=== PATIENT | female | born 1985 | race Caucasian/White ===

== ENCOUNTER 2020-03-06 07:00 | Inpatient (IN) | payer BC ==
[2020-03-06 08:59] VITALS: BMI 35.6
[2020-03-06 09:08] LABS: INR 0.91 (0.83-1.09); PROTHROMBIN TIME (PATIENT) 10.7 SEC (9.7-13.0)
[2020-03-06] MEDS ORDERED: OXYTOCIN 30 UNITS in 0.9% NS 30 UNIT/500 ML INFUS.BAG IVPB SCH (09:15)
[2020-03-06] MEDS: AMPICILLIN - 1 GM in SODIUM CHLORIDE 100 ML IVPB SCH ×5 (09:15→21:05)
[2020-03-06] MEDS: ELECTROLYTE-148 SOLN 1,000 ML IV SCH ×2 (09:15→17:29)
[2020-03-06] MEDS ORDERED: AMPICILLIN - 2 GM in SODIUM CHLORIDE 100 ML IVPB ONE (09:15)
[2020-03-06] MEDS ORDERED: AMPICILLIN SODIUM 2 GM VIAL ONE (09:16)
[2020-03-06 09:19] LABS: BLOOD UREA NITROGEN 8.8 mg/dL (7-18); CALCIUM 8.6 mg/dL (8.5-10.1); CREATININE 0.6 mg/dL (0.55-1.3); POTASSIUM 3.7 mmol/L (3.5-5.1)
--- NOTE | 2020-03-06 09:37 | HP ---
Past Medical History - Primary Care Physician PCP:: Pia Bowers - Admission Chief Complaint: 34yo P1 with at EGA 39w5d admitted for labor indx. 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: Alzheimer's, CVA, Dementia, Migraine, Multiple Sclerosis, Peripheral Neuropathy, Parkinson's, Seizure, Syncope, TIA, Vertigo, Other Cardiovascular: No: AFIB, Aneurysm, Aortic Insufficiency, Aortic Stenosis, CAD, CHF, Deep Vein Thrombosis, HTN, Hyperlipdemia, OH, Mitral Insufficiency, Mitral Stenosis, Murmur, Pulmonary Hypertension, Other Pulmonary: No: Asthma, Bronchitis, Cancer, COPD, O2 Dependent, Pneumonia, Previously Intubated, Pulmonary Embolus, Pulmonary Fibrosis, Sleep Apnea, Other Gastrointestinal: No: Ascites, Cancer, Constipation, Crohn's Disease, Diverticulitis, Diverticulosis, Esophageal Varices, Gastritis, GERD, GI Bleed, Hemorrhoids, Hiatal Hernia, Inflamatory Bowel Disease, Irritable Bowel Disease, Pancreatitis, Peptic Ulcer Disease, Ulcerative Colitis, Other Hepatobiliary: No: Cirrhosis, Cholelithiasis, Cholecystitis, Choledocholithiasi s, Hepatitis A, Hepatitis B, Hepatitis C, Other Renal/: No: Renal Failure, Renal Inusuff, BPH, Cancer, Hematuria, Hemodialysis, Neurogenic Bladder, Renal Calculi, UTI, Other ...: 2 ...Para: 1 () ...Term: 1 ...: 0 ...Spon : 0 ...Induced : 0 ...Living Children: 1 ...Multiple Gestation: 0 ...EDC by Sono: 03/08/20 Heme/Onc: No: Anemia, B12 Deficiency, Bleeding Disorder, Cancer, Current Chem otherapy, Current Radiation Therapy, Hemochromatosis, Hypercoaguable State, Myeloproliferative Synd, Sickle Cell Disease, Sickle Cell Trait, Thrombocytopenia, Other Infectious Disease: Yes: Other (COVID-19 infx in 09/2019) Psych: No: Addictions, Anxiety, Bipolar, Depression, Panic, Psychosis, Schizophrenia, Other Musculoskeletal: No: Bursitis, Chronic low back pain, Hemiparesis, Hemiplegia, Osteoarthritis, Paraplegia, Other Rheumatology: No: Fibromyalgia, Gout, Lupus, Rheumatoid Arthritis, Sarcoidosis, Vasculitis, Other ENT: No: Allergic Rhinitis, Sinusitis, Other Endocrine: No: Leno's Disease, Hao's Disease, Diabetes Insipidus, Diabete s Mellitus, Hyperparathyroidism, Hyperthyroidism, Hypothyroidism, Osteopenia, SIADH, Other - Past Surgical History Past Surgical History: Yes: None Hx Myomectomy: No Hx Transabdominal Cerclage: No - Smoking History Smoking history: Never smoked Have you smoked in the past 12 months: No - Alcohol/Substance Use Hx Alcohol Use: No History of Substance Use: reports: None - Social History Usual Living Arrangement: Yes: With Spouse, With Child Do you think of yourself as: Straight/Heterosexual ADL: Independent Occupation: Bilingual Nanny History of Recent Travel: Yes Home Medications - Allergies Allergies/Adverse Reactions: Allergies Allergy/AdvReac Type Severity Reaction Status Date / Time No Known Allergies Allergy Verified 03/06/20 08:36 - Home Medications Home Medications: Ambulatory Orders Aspirin 81 mg PO 03/06/20 No115/Iron/Folic Acid [ 19 Chewable Tablet] 1 each PO DAILY 03/06/20 Family Medical History Family Hx Cardiac Disorders: Mother (HTN) Review of Systems - Review of Systems Constitutional: reports: No Symptoms Eyes: reports: No Symptoms HENT: reports: No Symptoms Neck: reports: No Symptoms Cardiovascular: reports: No Symptoms Respiratory: reports: No Symptoms Gastrointestinal: reports: No Symptoms Genitourinary: reports: No Symptoms Breasts: reports: No Symptoms Reported Musculoskeletal: reports: No Symptoms Integumentary: reports: No Symptoms Neurological: reports: No Symptoms Endocrine: reports: No Symptoms Hematology/Lymphatic: reports: No Symptoms Psychiatric: reports: No Symptoms Pain Intensity: 0 Physical Exam - Maternity Vital Signs: Vital Signs Temperature 98.1 F 03/06/20 08:44 Pulse Rate 103 H 03/06/20 08:44 Respiratory Rate 03/06/20 08:44 Blood Pressure 132/70 03/06/20 08:44 O2 Sat by Pulse Oximetry (%) Constitutional: Yes: Well Nourished, No Distress, Calm Eyes: Yes: WNL, Conjunctiva Clear, EOM Intact HENT: Yes: WNL, Atraumatic, Normocephalic Neck: Yes: WNL, Supple, Trachea Midline Cardiovascular: Yes: WNL, Regular Rate and Rhythm Breast(s): Yes: WNL - Abdominal Exam/OB Fundal Height: 40 Number of Fetuses: Single Presentation: Vertex Contractions: Yes Regularity: Irregular (q10min) Intensity: Unaware Monitor Mode: External Heart Rate (range): 135 Heart Rate Location: Midline Category: I Accelerations: None Decelerations: None - Vaginal Exam/OB Vaginal Bleeding: No Speculum Exam: No Dilatation (cm): 2.5 Effacement (%): 30 Amniotic Membrane Status: Intact Presentation: Vertex/Position Station: -3 (Gynecoid pelvimetry, EFW ~3300 gm by Dhruv's maneuvers) - Physical Exam Musculoskeletal: Yes: WNL Extremities: Yes: WNL Edema: No Integumentary: Yes: WNL Deep Tendon Reflex Grade: Normal +2 ...Motor Strength: WNL Psychiatric: Yes: WNL, Alert, Oriented - Labs Lab Results: CBC, BMP 03/06/20 08:38 Hemorrhage Risk Assessment - Risk Factors Medium Risk Factors: Yes: None High Risk Factors: Yes: None Risk Score: 1 Risk Level: Medium Risk Assessment/Plan 34yo P1 with at EGA 39w5d admitted for labor indx. Pt is not in labor. Fetus with Category I tracing. Adequate gynecoid pelvimetry on exam. We had long discussion re: risks, benefits, and alternatives of labor induction. I explained the options of expectant management awaiting spontaneous labor, induction of labor, and elective section. The risks of uterine tachysystole, distress, uterine rupture, need for emergency C/S, hemorrhage, infection, scarring, etc. were discussed. We also discussed the risks of meconium aspiration, shoulder dystocia, and anesthesia options. The pt requested to proceed with induction. We discussed the alternative methods of induction with Cervidil, Cytotec, Folley ballon, and pitocin. The pt prefers pitocin.
[2020-03-06 10:04] LABS: BASO % 0.6 % (0-2.0); EOS % 1.5 % (0-4.5); HEMATOCRIT 28.4 % (32.4-45.2); HEMOGLOBIN 9.3 GM/dL (10.7-15.3); LYMPH % 19.8 % (8-40); MCH 26.1 pg (25.7-33.7); MCHC 32.9 g/dl (32.0-36.0); MEAN CELL VOLUME 79.2 fl (80-96); MONO % 8.7 % (3.8-10.2); NEUT % 69.4 % (42.8-82.8); PLATELET COUNT 353 K/MM3 (134-434); RBC 3.58 M/mm3 (3.60-5.2); RDW 13.7 % (11.6-15.6); WHITE BLOOD COUNT 7.4 K/mm3 (4.0-10.0)
[2020-03-06] MEDS ORDERED: AMPICILLIN SODIUM 1 GM VIAL ONE ×3 (13:07→21:06)
[2020-03-06] MEDS ORDERED: BUTORPHANOL TARTRATE 2 MG/ML VIAL IVPUSH ONE (18:20)
[2020-03-06] MEDS ORDERED: PROMETHAZINE HCL 25 MG/1 ML VIAL IVPUSH ONE (18:20)
--- NOTE | 2020-03-06 18:20 | PN ---
Progress Note, Labor Vaginal Exam #1 Labor Exam Date: 03/06/20 Labor Exam Time: 18:00 Heart Rate (range): 140, Category 1 Dilatation: 3 Effacement (%): 50% Amniotic Membrane Status: Intact Presentation: Vertex/Position Station: -3 Remarks: Maternal status reassuring Cervical posey places Pain meds as needed
[2020-03-06] MEDS ORDERED: PROMETHAZINE HCL 25 MG/1 ML VIAL ONE (18:45)
[2020-03-06] MEDS ORDERED: BUTORPHANOL TARTRATE 2 MG/ML VIAL ONE (18:45)
[2020-03-06] MEDS ORDERED: FENTANYL/BUPIVACAINE/NS/PF - PCEA - 50 ML DISP.SYRIN EP ONE (21:46)
[2020-03-06] MEDS ORDERED: PCA PUMP NR ONE (21:47)
--- NOTE | 2020-03-06 22:51 | PN ---
Progress Note, Labor Vaginal Exam #2 Labor Exam Date: 03/06/20 Labor Exam Time: 22:30 Heart Rate (range): 150's Category 1 Dilatation: 6 Effacement (%): 75% Amniotic Membrane Status: Intact Presentation: Vertex/Position Station: -3 Remarks: MF Status reassuring She is comfortable after Epidural Cervical posey removed <2 doses of Ampicillin ROM - Clear fluid for Augmentation Cont. Pitocin - now 15Mu/min EFW 7.5lb
[2020-03-06] MEDS ORDERED: NALOXONE HCL 0.4 MG/ML VIAL IVPUSH PRN (23:24)
[2020-03-07] MEDS ORDERED: AMPICILLIN SODIUM 1 GM VIAL ONE ×2 (00:56→05:24)
[2020-03-07] MEDS ORDERED: FENTANYL/BUPIVACAINE/NS/PF - PCEA - 50 ML DISP.SYRIN EP ONE ×2 (00:56→03:55)
[2020-03-07] MEDS: AMPICILLIN - 1 GM in SODIUM CHLORIDE 100 ML IVPB SCH ×3 (01:00→13:44)
[2020-03-07] MEDS ORDERED: BUPIVACAINE HCL/PF 0.25% (2.5MG/ML) 10 ML VIAL ONE (01:21)
[2020-03-07] MEDS ORDERED: OXYTOCIN 20 UNITS in 0.9% NS 20 UNIT/1,000 ML INFUS.BAG IV ONE ×3 (06:02→07:33)
[2020-03-07] MEDS ORDERED: MISOPROSTOL 200 MCG TABLET ONE (06:34)
[2020-03-07] MEDS ORDERED: BENZOCAINE 28 GM HEMORRHOIDAL OINTMENT TP PRN (07:02)
[2020-03-07] MEDS ORDERED: BISACODYL 10 MG SUPP.RECT RC PRN (07:02)
[2020-03-07] MEDS ORDERED: WITCH HAZEL 50% (TUCKS) 40 PAD/JAR PAD TP PRN (07:02)
[2020-03-07] MEDS ORDERED: METHYLERGONOVINE MALEATE 0.2 MG/1 ML AMP IM PRN (07:02)
[2020-03-07] MEDS ORDERED: BENZOCAINE 20% 57 GM BOTTLE TP PRN (07:02)
--- NOTE | 2020-03-07 07:02 | PN ---
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
[2020-03-07] MEDS ORDERED: OXYTOCIN 20 UNITS in 0.9% NS 20 UNIT/1,000 ML INFUS.BAG IV SCH (07:15)
[2020-03-07 08:05] LABS: CORD BASE EXCESS -4.8 mmol/L (0-2); CORD HCO3 21.2 mmHg (20-29); CORD PCO2 42.7 mmHg (30-78); CORD pH 7.314 (7.14-7.44)
[2020-03-07 08:07] LABS: CORD BASE EXCESS -8.8 mmol/L (0-2); CORD HCO3 20.8 mmHg (20-29); CORD PCO2 59.6 mmHg (30-78); CORD pH 7.161 (7.14-7.44)
[2020-03-07] MEDS ORDERED: IBUPROFEN 600 MG TABLET (FP) PO ONE ×2 (08:36→13:46)
[2020-03-07] MEDS ORDERED: ACETAMINOPHEN 325 MG TABLET (FP) ONE ×2 (08:36→13:46)
[2020-03-07] MEDS: IBUPROFEN 600 MG TABLET (FP) PO PRN ×3 (08:37→21:49)
[2020-03-07] MEDS: ACETAMINOPHEN 325 MG TABLET (FP) PO PRN ×3 (08:37→21:49)
[2020-03-07] MEDS: FERROUS SO4 325 MG TABLET (FP) PO SCH ×2 (09:28→21:49)
[2020-03-07] MEDS: PRENATAL VITAMINS W/ FOLIC ACID TABLET (FP) PO SCH (09:28)
--- NOTE | 2020-03-08 06:57 | PN ---
Post Progress Note - Subjective Subjective: Patient without acute complaints. Reports tolerating oral intake without nausea or vomiting. Ambulating without dizziness. Denies fevers or chills. Pain well controlled with oral pain medication. Pumping/breast feeding without issue. Post Day: 1 Type of Delivery: Vital Signs: Vital Signs Temperature 98.5 F 03/07/20 22:00 Pulse Rate 99 H 03/07/20 22:00 Respiratory Rate 20 03/07/20 22:00 Blood Pressure 105/72 03/07/20 22:00 O2 Sat by Pulse Oximetry (%) 99 03/07/20 14:10 Breast Exam: Yes: Soft Uterus: Yes: Fundus Firm, Fundus below umbilicus, Non-tender Abdomen/GI: Yes: Abdomen soft Lochia: Yes: Rubra Lochia, amount: Small Extremities: Yes: Calves non-tender Perineum: Yes: Laceration (repair intact) Activity: Ambulating - Labs Labs: CBC WBC 7.4 K/mm3 (4.0-10.0) 03/06/20 08:38 RBC 3.58 M/mm3 (3.60-5.2) L 03/06/20 08:38 Hgb 9.3 GM/dL (10.7-15.3) L 03/06/20 08:38 Hct 28.4 % (32.4-45.2) L 03/06/20 08:38 MCV 79.2 fl (80-96) L 03/06/20 08:38 MCH 26.1 pg (25.7-33.7) 03/06/20 08:38 MCHC 32.9 g/dl (32.0-36.0) 03/06/20 08:38 RDW 13.7 % (11.6-15.6) 03/06/20 08:38 Plt Count 353 K/MM3 (134-434) 03/06/20 08:38 MPV 8.0 fl (7.5-11.1) 03/06/20 08:38 Absolute Neuts (auto) 5.1 K/mm3 (1.5-8.0) 03/06/20 08:38 Neutrophils % 69.4 % (42.8-82.8) 03/06/20 08:38 Lymphocytes % 19.8 % (8-40) 03/06/20 08:38 Monocytes % 8.7 % (3.8-10.2) 03/06/20 08:38 Eosinophils % 1.5 % (0-4.5) 03/06/20 08:38 Basophils % 0.6 % (0-2.0) 03/06/20 08:38 Nucleated RBC % 0 % (0-0) 03/06/20 08:38 Assessment/Plan 34yo P2 s/p , doing well stable, afebrile. Asymptomatic for anemia. care instructions reviewed. Continue routine care. Ambulation encouraged Discharge instruction reviewed.
--- NOTE | 2020-03-08 07:10 | DS ---
Physical Exam-PACKAGING COORDINATOR Vital Signs: Vital Signs Temperature 98.5 F 03/07/20 22:00 Pulse Rate 99 H 03/07/20 22:00 Respiratory Rate 20 03/07/20 22:00 Blood Pressure 105/72 03/07/20 22:00 O2 Sat by Pulse Oximetry (%) 99 03/07/20 14:10 Constitutional: Yes: Well Nourished, No Distress, Calm Eyes: Yes: WNL, Conjunctiva Clear, EOM Intact HENT: Yes: WNL, Atraumatic, Normocephalic Neck: Yes: WNL, Supple, Trachea Midline Cardiovascular: Yes: WNL, Regular Rate and Rhythm Respiratory: Yes: WNL, Regular, CTA Bilaterally Gastrointestinal: Yes: WNL, Normal Bowel Sounds, Soft ...Rectal Exam: Yes: Deferred Renal/: Yes: WNL ....Post : Yes: Uterus firm, Uterus non-tender, Slight lochia rubra Breast(s): Yes: WNL Musculoskeletal: Yes: WNL Extremities: Yes: WNL Edema: Yes Edema: LLE: Trace, RLE: Trace Integumentary: Yes: WNL Neurological: Yes: WNL, Alert, Oriented ...Motor Strength: WNL Psychiatric: Yes: WNL, Alert, Oriented Labs: CBC, BMP 03/06/20 08:38 03/06/20 08:38 Delivery - Delivery Vaginal Delivery: No Problems, Spontaneous Type of Anesthesia: Local, Epidural Episiotomy/Laceration: Midline, 1st degree EBL (cc): 400 Delivery, Single - Stages of Labor Date 1st Stage Initiatied: 03/06/20 Time 1st Stage Initiated: 20:00 Date 2nd Stage Initiated: 03/07/20 Time 2nd Stage Initiated: 06:00 Date of Delivery: 03/07/20 Time of Delivery: 06:24 Time Placenta Delivered: 06:29 Placenta: Yes: Spontaneous, Normal Configuration - 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 Gender: Female Weight: 4.082 kg Position: Right, OA Total Hours ROM (Hrs/Mins): 7 HOURS/ 54 MINUTES - 1 Minute Total Score: 9 5 Minutes Total Score: 9 - Feeding Plan Initial Plan: Elected not to breastfeed exclusively throughout hospitalization Benefits of Exclusively reinforced: Yes Discharge Summary Problems reviewed: Yes Reason For Visit: LABOR ADMIT Labor induction Procedures: Principal: [facility] Hospital Course: Normal recovery Plan of Treatment: Normal recovery Goals: Normal recovery Condition: Good - Instructions Diet, Activity, Other Instructions: Physical activity Resume your normal everyday activity as tolerated no heavy lifting or exercise until seen by your surgeon. You may walk unlimited moisés of and climb stairs. You may resume driving the car when you feel safe and comfortable behind the wheel. No sexual activity as instructed. Wound care If you have a bandage, leave it on, and keep dry for 48-72 hours. After that time discard the outer bandage. If they are tapes on the skin under the out of bandage leave them in place. They will peel off in the next 7 to 10 days. Do Not Peel them off. You may shower the day after surgery. If there are tapes present on the skin, you may shower over them. Diet There are no dietary restrictions. Eat healthy, high-fiber foods. Drink 6 to 8 glasses of liquid each day. This will assist in keeping your bowels are regular. Pain management You may take Tylenol or acetaminophen or Ibuprofen (for example, Motrin, Advil etc.) from my pain prescription medication is ordered should be taken as prescribed for moderate to severe pain. Call MD for any of the following: Severe pain not relieved by medication Fever of 101 or higher Excessive bleeding or drainage on dressing Inability to urinate Referrals: Pia Bowers MD [Staff Physician] - Disposition: HOME - Home Medications Comprehensive Discharge Medication List: Ambulatory Orders Aspirin 81 mg PO 03/06/20 No115/Iron/Folic Acid [ 19 Chewable Tablet] 1 each PO DAILY 03/06/20 Prescription Drug Monitoring Program (I-STOP) results: I-STOP not reviewed
[2020-03-08 08:40] LABS: BASO % 0.5 % (0-2.0); EOS % 1.7 % (0-4.5); HEMATOCRIT 21.4 % (32.4-45.2); HEMOGLOBIN 7.2 GM/dL (10.7-15.3); LYMPH % 19.6 % (8-40); MCH 26.9 pg (25.7-33.7); MCHC 33.4 g/dl (32.0-36.0); MEAN CELL VOLUME 80.5 fl (80-96); MEAN PLT VOLUME 7.8 fl (7.5-11.1); MONO % 6.6 % (3.8-10.2); NEUT % 71.6 % (42.8-82.8); PLATELET COUNT 301 K/MM3 (134-434); RBC 2.66 M/mm3 (3.60-5.2); RDW 13.8 % (11.6-15.6); WHITE BLOOD COUNT 9.4 K/mm3 (4.0-10.0)
[2020-03-08] MEDS: PRENATAL VITAMINS W/ FOLIC ACID TABLET (FP) PO SCH (10:15)
[2020-03-08] MEDS: FERROUS SO4 325 MG TABLET (FP) PO SCH ×2 (10:15→21:21)
--- NOTE | 2020-03-08 11:46 | PN ---
Progress Note (short form) - Note Progress Note: Notified by Nursing staff of H/H drop 9.3/28.4 --> 7.2/21.4 Patient without complaints No excessive bleeding at this time Denies chest pain, shortness of breath, nausea No palpitations Orthostatic VS: Laying: BP 98/67 HR 98 Sitting: BP 107/77 HR 114 Standing: BP 109/72 HR 112 Recommended blood transfuion Reviewed risks including but not limited to rare risk of exposure to infectious disease and transfusion related reaction All questions answered Patient agrees to tranfusion 2 uPRBC ordered
[2020-03-08] MEDS: FENTANYL/BUPIVACAINE/NS/PF - PCEA - 50 ML DISP.SYRIN EP SCH ×2 (19:01→19:03)
[2020-03-08] MEDS: AMPICILLIN - 1 GM in SODIUM CHLORIDE 100 ML IVPB SCH (19:04)
[2020-03-08] MEDS: IBUPROFEN 600 MG TABLET (FP) PO PRN (19:58)
[2020-03-08] MEDS: ACETAMINOPHEN 325 MG TABLET (FP) PO PRN (19:59)
[2020-03-08 21:43] VITALS: TEMP 98
[2020-03-08] MEDS ORDERED: SENNOSIDES/DOCUSATE COMBO (SENNA PLUS) TABLET (UD) PO PRN (22:00)
--- NOTE | 2020-03-09 00:07 | PN ---
Post Progress Note - Subjective Subjective: Patient without acute complaints. s/p 2 U PRBCs, doing well Reports tolerating oral intake without nausea or vomiting. Ambulating without dizziness. Denies fevers or chills. Pain well controlled with oral pain medication. Passing flatus. Post Day: 2 Type of Delivery: Vital Signs: Vital Signs Temperature 98.0 F 03/08/20 21:41 Pulse Rate 92 H 03/08/20 21:41 Respiratory Rate 18 03/08/20 21:41 Blood Pressure 112/81 03/08/20 21:41 O2 Sat by Pulse Oximetry (%) 99 03/08/20 21:41 Breast Exam: Yes: Soft Uterus: Yes: Fundus Firm Abdomen/GI: Yes: Abdomen soft, Passing flatus, Tolerating PO. No: Abdominal Distention, Tender Lochia: Yes: Serosa Lochia, amount: Small Extremities: Yes: Calves non-tender, Edema (trace) - Labs Labs: CBC WBC 9.4 K/mm3 (4.0-10.0) 03/08/20 07:35 RBC 2.66 M/mm3 (3.60-5.2) L 03/08/20 07:35 Hgb 7.2 GM/dL (10.7-15.3) L 03/08/20 07:35 Hct 21.4 % (32.4-45.2) L D 03/08/20 07:35 MCV 80.5 fl (80-96) 03/08/20 07:35 MCH 26.9 pg (25.7-33.7) 03/08/20 07:35 MCHC 33.4 g/dl (32.0-36.0) 03/08/20 07:35 RDW 13.8 % (11.6-15.6) 03/08/20 07:35 Plt Count 301 K/MM3 (134-434) 03/08/20 07:35 MPV 7.8 fl (7.5-11.1) 03/08/20 07:35 Absolute Neuts (auto) 6.7 K/mm3 (1.5-8.0) 03/08/20 07:35 Neutrophils % 71.6 % (42.8-82.8) 03/08/20 07:35 Lymphocytes % 19.6 % (8-40) 03/08/20 07:35 Monocytes % 6.6 % (3.8-10.2) 03/08/20 07:35 Eosinophils % 1.7 % (0-4.5) 03/08/20 07:35 Basophils % 0.5 % (0-2.0) 03/08/20 07:35 Nucleated RBC % 0 % (0-0) 03/08/20 07:35 Assessment/Plan 34 yo PPD # 2 s/p , afebrile, vital signs stable, s/p transfusion 2uPRBC 1. CBC today with improvement, 8.9 / 26.7 Patient stable for discharge home today. 2. Patient encouraged to contact MD for: - Severe pain not controlled by oral pain medication - Fevers or chills - Nausea or vomiting, intolerance of oral intake 3. Patient to follow up in office in 4-6 weeks for visit
[2020-03-09] MEDS: ACETAMINOPHEN 325 MG TABLET (FP) PO PRN (04:21)
[2020-03-09] MEDS: IBUPROFEN 600 MG TABLET (FP) PO PRN (04:21)
[2020-03-09 07:48] LABS: HEMATOCRIT 26.7 % (32.4-45.2); HEMOGLOBIN 8.9 GM/dL (10.7-15.3); MCH 26.9 pg (25.7-33.7); MCHC 33.3 g/dl (32.0-36.0); MEAN CELL VOLUME 80.9 fl (80-96); MEAN PLT VOLUME 7.7 fl (7.5-11.1); PLATELET COUNT 302 K/MM3 (134-434); RDW 13.8 % (11.6-15.6); WHITE BLOOD COUNT 8.9 K/mm3 (4.0-10.0)
[2020-03-09 10:13] VITALS: BP 119/78; PULSE 84
[2020-03-09] MEDS: FERROUS SO4 325 MG TABLET (FP) PO SCH (10:36)
[2020-03-09] MEDS: PRENATAL VITAMINS W/ FOLIC ACID TABLET (FP) PO SCH (10:36)
== END 2020-03-09 12:52 | disposition home or self-care (01) | DRG 806 ==
LOC: JLDR 07:00 → J3W 03-07 14:10
PROVIDERS: ADMIT Obstetrics & Gynecology; ATTEND Obstetrics & Gynecology
PROC: 3E033VJ Introduction of Other Hormone into Peripheral Vein, Percutaneous Approach (ICD-10-PCS; principal; 2020-03-06)
PROC: 10E0XZZ Delivery of Products of Conception, External Approach (ICD-10-PCS; 2020-03-07)
PROC: 0W8NXZZ Division of Female Perineum, External Approach (ICD-10-PCS; 2020-03-07)
PROC: 0HQ9XZZ Repair Perineum Skin, External Approach (ICD-10-PCS; 2020-03-07)
PROC: 30233N1 Transfusion of Nonautologous Red Blood Cells into Peripheral Vein, Percutaneous Approach (ICD-10-PCS; 2020-03-08)
DX: O99.214 Obesity complicating childbirth (principal); O12.13 Gestational proteinuria, third trimester; Z37.0 Single live birth; E66.9 Obesity, unspecified; O70.0 First degree perineal laceration during delivery; O99.824 Streptococcus B carrier state complicating childbirth; O90.81 Anemia of the puerperium; D64.9 Anemia, unspecified; Z3A.39 39 weeks gestation of pregnancy; Z86.19 Personal history of other infectious and parasitic diseases; Z79.82 Long term (current) use of aspirin
CPT/HCPCS: 36415; 36430; 36511; 36600; 59409; 80048; 82803; 85025; 85027; 85610; 85730; 86780; 86850; 86900; 86901; 86922; P9038; P9058